=== PATIENT | male | born 1985 | race Two or more races ===

== ENCOUNTER 2024-08-12 17:32 | Emergency (ER) | payer BC ==
[~2024-08-12] VITALS: Ht 165.1 cm; Wt 89.0 kg
[2024-08-12 17:35] VITALS: O2SAT 99
[2024-08-12 17:49] VITALS: BP 119/86; PULSE 100; RESP 14; TEMP 36.8; O2SAT 97
[2024-08-12] MEDS ORDERED: TRIMO EACHEYE (19:56)
== END 2024-08-12 20:17 | disposition home or self-care (01) ==
LOC: ER 17:32
DX: H10.9 Unspecified conjunctivitis (principal); Z91.018 Allergy to other foods
CPT/HCPCS: 99283; Z7610